=== PATIENT | male | born 1960 | race Caucasian/White ===

== ENCOUNTER 2022-07-06 12:04 | Emergency (ER) | payer OTHER, SELFPAY ==
[2022-07-06 12:05] VITALS: BP 152/88; PULSE 66; RESP 16; TEMP 37.4; O2SAT 96
--- NOTE | 2022-07-06 12:25 | ED.GENADULT ---
HPI - General Adult General Chief complaint: Eye Problems Stated complaint: eye complaint Time Seen by Provider: 07/06/22 12:07 History of Present Illness HPI narrative: 62-year-old male presenting to the ED for evaluation of right eye pain. Patient reports he was mowing the grass when he got stuck in the right eye with a tree branch approximate 2 hours prior to arrival. Patient states that the pain was intermittent initially after the injury but then has been persistent so he presented to the emergency department for evaluation. Patient does not wear contacts. Patient has no listed allergies. Tetanus status was unknown. Related Data Allergies Allergy/AdvReac Type Severity Reaction Status Date / Time No Known Allergies Allergy Verified 07/06/22 12:22 Review of Systems Review of Systems: All systems reviewed & are unremarkable except as noted in HPI and below Exam Narrative: APPEARANCE: Well appearing, no pain, no distress, well-nourished. HEAD: normocephalic, atraumatic. EYES: PERRLA/EOMI, conjunctivae clear. Tearing of right eye. Fluorescein uptake with an abrasion just superior of the pupil. Eyelids were inverted and no foreign bodies were visualized. NOSE: Normal no drainage NECK: Supple. No adenopathy, no masses. NEURO: Alert. Cranial nerves II through XII intact. Grossly intact SKIN: Warm, dry. Normal Color Course Course Emergency Course: Patient was treated with erythromycin ointment while in the emergency department. Patient's tetanus was updated. Patient was strongly encouraged to have close follow-up with ophthalmology. [facility] Patient was educated on reasons to return to the emergency department. All questions and concerns were addressed. Vital Signs Vital signs: Vital Signs Temperature 99.3 F 07/06/22 12:05 Pulse Rate 66 07/06/22 12:05 Respiratory Rate 16 07/06/22 12:05 Blood Pressure 152/88 H 07/06/22 12:05 Pulse Oximetry 96 07/06/22 12:05 Oxygen Delivery Room Air 07/06/22 12:05 Temperature 99.3 F 07/06/22 12:05 Pulse Rate 66 07/06/22 12:05 Respiratory Rate 16 07/06/22 12:05 Blood Pressure 152/88 H 07/06/22 12:05 Pulse Oximetry 96 07/06/22 12:05 Oxygen Delivery Room Air 07/06/22 12:05 Medical Decision Making Vital Signs Vital Signs: Vital Signs Temperature 99.3 F 07/06/22 12:05 Pulse Rate 66 07/06/22 12:05 Respiratory Rate 16 07/06/22 12:05 Blood Pressure 152/88 H 07/06/22 12:05 Pulse Oximetry 96 07/06/22 12:05 Oxygen Delivery Room Air 07/06/22 12:05 Temperature 99.3 F 07/06/22 12:05 Pulse Rate 66 07/06/22 12:05 Respiratory Rate 16 07/06/22 12:05 Blood Pressure 152/88 H 07/06/22 12:05 Pulse Oximetry 96 07/06/22 12:05 Oxygen Delivery Room Air 07/06/22 12:05 Discharge Plan Discharge Clinical Impression: Corneal abrasion Qualifiers: Encounter type: initial encounter Laterality: right Qualified Code(s): S05.01XA - Injury of conjunctiva and corneal abrasion without foreign body, right eye, initial encounter Patient Disposition: Home, Self-Care Condition: Stable Instructions: Antibiotic Form, Corneal Abrasion (ED) Additional Instructions: Antibiotic ointment as directed. Have close follow-up with ophthalmology. If you have any worsening symptoms then please call or return to the emergency department for Prescriptions: New erythromycin 5 mg/gram (0.5 %) ointment 0.5 inch EACH EYE TID Qty: 3.5 0RF Follow-up/Referrals: [facility] - [place] [Outside] PHYSICIAN NOT ON STAFF,NONSTAFF [Primary Care Provider] -
[2022-07-06] MEDS: ERYTHROMYCIN OPHTH OINTMENT 1 GM TUBE 1 APPLIC RIGHT EYE (12:43)
== END 2022-07-06 12:47 | disposition home or self-care (01) ==
LOC: ANHED 12:41
PROVIDERS: Emergency Provider Emergency Medicine
DX: S05.01XA Injury of conjunctiva and corneal abrasion without foreign body, right eye, initial encounter (principal); W22.8XXA Striking against or struck by other objects, initial encounter; Y93.H2 Activity, gardening and landscaping
CPT/HCPCS: 99283; A9270

== ENCOUNTER 2022-10-11 21:27 | Emergency (ER) | payer OTHER, SELFPAY ==
[2022-10-11 21:31] VITALS: BP 163/73; PULSE 60; RESP 17; TEMP 36.5; O2SAT 100
[2022-10-11 21:35] LABS: Glucose Point of Care 327 mg/dl (65-105)
[2022-10-11 22:12] VITALS: BP 181/79; PULSE 60; RESP 17; O2SAT 98
--- NOTE | 2022-10-11 22:22 | ED.GENADULT ---
HPI - General Adult General Chief complaint: Unspecified Stated complaint: need insulin refill Time Seen by Provider: 10/11/22 22:06 Source: patient Mode of arrival: ambulatory Limitations: no limitations History of Present Illness HPI narrative: This is a 62-year-old male that presents to the emergency department for medication refill. Reports he is out of his insulin prescription. He does not see his primary provider for another week. He has no other complaints. Related Data Allergies Allergy/AdvReac Type Severity Reaction Status Date / Time No Known Allergies Allergy Verified 10/11/22 22:13 Review of Systems Review of Systems: CONSTITUTIONAL: Denies fever GASTROINTESTINAL: Denies vomiting All systems reviewed & are unremarkable except as noted in HPI and below PMFSH Past Medical History Medical History (Updated 10/11/22 @ 22:30 by Maggie Schwartz PA-C) History of diabetes mellitus Social History Social History (Updated 10/11/22 @ 22:30 by Maggie Schwartz PA-C) Substance use: never Exam Narrative: GENERAL: Well-appearing, well-nourished, and in no acute distress. HEAD: Normocephalic, atraumatic. EYES: EOMI. CHEST: No respiratory distress. HEART: Regular rate EXTREMITIES: Normal range of motion. No edema. SKIN: Warm, dry, no rash. NEURO: No focal deficits. PSYCH: Normal mood and affect Course Course Emergency Course: Patient agrees with plan of care Vital Signs Vital signs: Vital Signs Temperature 97.7 F 10/11/22 21:31 Pulse Rate 60 10/11/22 21:31 Respiratory Rate 17 10/11/22 21:31 Blood Pressure 163/73 H 10/11/22 21:31 Pulse Oximetry 100 10/11/22 21:31 Oxygen Delivery Room Air 10/11/22 21:31 Temperature 97.7 F 10/11/22 21:31 Pulse Rate 60 10/11/22 22:12 Respiratory Rate 17 10/11/22 22:12 Blood Pressure 181/79 H 10/11/22 22:12 Pulse Oximetry 98 10/11/22 22:12 Oxygen Delivery Room Air 10/11/22 21:31 Medical Decision Making [facility] Narrative Medical decision making narrative: Patient presents to the emergency department for refill of his insulin prescription. Reports he ran out today. He sees his primary doctor in about a week. He has no other complaints. Prescription was sent to his pharmacy. He was also given a dose of his nighttime insulin. He was given warnings to return to the ER Vital Signs Vital Signs: Vital Signs Temperature 97.7 F 10/11/22 21:31 Pulse Rate 60 10/11/22 21:31 Respiratory Rate 17 10/11/22 21:31 Blood Pressure 163/73 H 10/11/22 21:31 Pulse Oximetry 100 10/11/22 21:31 Oxygen Delivery Room Air 10/11/22 21:31 Temperature 97.7 F 10/11/22 21:31 Pulse Rate 60 10/11/22 22:12 Respiratory Rate 17 10/11/22 22:12 Blood Pressure 181/79 H 10/11/22 22:12 Pulse Oximetry 98 10/11/22 22:12 Oxygen Delivery Room Air 10/11/22 21:31 Lab Data Lab results reviewed: Yes I reviewed the patient's lab results. Labs: Lab Results 10/11/22 Range/Units 21:31 POC Capillary Glucose 327 H (65-105) mg/dl Critical Care Time Critical Care Time Critical Care Time: No Discharge Plan Discharge Clinical Impression: Encounter for medication refill Patient Disposition: Home, Self-Care Condition: Stable Instructions: Medicine Refill (ED) Additional Instructions: Return to the emergency department if you experience fever, chest pain, shortness of breath, abdominal pain with nausea and vomiting, weakness, numbness, or any other symptoms that are concerning to you. Follow up with your primary care doctor Prescriptions: New insulin glargine [Lantus U-100 Insulin] 100 unit/mL solution 58 unit subcut DAILY Qty: 10 0RF Follow-up/Referrals: PHYSICIAN NOT ON STAFF,NONSTAFF [Non-Staff] - 3 Days
[2022-10-11 22:39] VITALS: BP 151/71; PULSE 60; RESP 17; O2SAT 97
[2022-10-11] MEDS: INSULIN GLARGINE (*BKC) 100 UNITS/ML 30 UNITS SUB-Q (22:42)
== END 2022-10-11 22:49 | disposition home or self-care (01) ==
PROVIDERS: Emergency Provider Physician Assistant
DX: E11.9 Type 2 diabetes mellitus without complications (principal); Z76.0 Encounter for issue of repeat prescription
CPT/HCPCS: 82948; 99281; 99282; J1815